=== PATIENT | male | born 1995 | race Caucasian/White ===

== ENCOUNTER → 2024-02-07 | Outpatient (CLI) | payer OTHER ==
[~2024-02-07] MED LIST: GASTROGRAFIN SOLUTION 30ML ONE; ISOVUE-370 76% 100ML VIAL ONE
== END ==
LOC: M PLAIMG 09:06
PROVIDERS: ATTEND Physician Assistant
DX: R10.11 Right upper quadrant pain (principal); R10.31 Right lower quadrant pain
CPT/HCPCS: 74178; Q9963; Q9967

== ENCOUNTER 2025-02-03 10:44 | Inpatient (IN) | payer OTHER ==
[~2025-02-03] VITALS: Ht 165.1 cm; Wt 95.5 kg
[2025-02-03 11:27] LABS: HEMATOCRIT 48.9 % (42.0-52.0); HEMOGLOBIN 16.7 g/dl (13.5-17.5); MEAN CORPUSCULAR HEMOGLOBIN 30.9 pg (27.0-33.0); MEAN CORPUSCULAR HGB CONC 34.2 g/dl (32.0-36.5); MEAN CORPUSCULAR VOLUME 90.4 fl (80.0-96.0); PLATELET COUNT, AUTOMATED 208 10^3/uL (150-450); RED BLOOD COUNT 5.41 10^6/uL (4.30-6.10); WHITE BLOOD COUNT 6.4 10^3/uL (4.0-10.0)
[2025-02-03 11:49] LABS: ETHYL ALCOHOL (ETHANOL) < 0.003 % (0.000-0.010)
[2025-02-03 11:51] LABS: ALBUMIN 4.1 G/DL (3.2-5.2); ALKALINE PHOSPHATASE 138 U/L (40-129); ALT/SGPT 50 U/L (7.0-40); AST/SGOT 23 U/L (<34); BILIRUBIN,DIRECT 0.2 MG/DL (<0.4); BILIRUBIN,TOTAL 0.4 MG/DL (0.3-1.2); BLOOD UREA NITROGEN 14 MG/DL (9-23); CALCIUM LEVEL 9.3 MG/DL (8.5-10.1); CARBON DIOXIDE LEVEL 27 MMOL/L (20-31); CHLORIDE LEVEL 108 MMOL/L (98-107); CREATININE FOR GFR 1.08 MG/DL (0.70-1.30); GLOMERULAR FILTRATION RATE > 90.0 (>60); GLUCOSE, FASTING 112 MG/DL (60-100); POTASSIUM SERUM 4.3 MMOL/L (3.5-5.1); SALICYLATE LEVEL < 3.0 MG/DL (<30); SODIUM LEVEL 144 MMOL/L (136-145); TOTAL PROTEIN 7.4 G/DL (5.7-8.2)
[2025-02-03 11:56] LABS: THYROID STIMULATING HORMONE 1.466 uIU/ML (0.55-4.78)
[2025-02-03 14:26] LABS: AMPHETAMINES LEVEL URINE NEGATIVE (NEGATIVE); BARBITURATES URINE NEGATIVE (NEGATIVE); COCAINE METABOLITE URINE NEGATIVE (NEGATIVE)
[2025-02-03 14:27] LABS: BENZODIAZEPINES URINE NEGATIVE (NEGATIVE); CANNABINOIDS URINE NEGATIVE (NEGATIVE); METHADONE URINE NEGATIVE (NEGATIVE); OPIATES URINE NEGATIVE (NEGATIVE); PHENCYCLIDINE URINE NEGATIVE (NEGATIVE)
[2025-02-03] MEDS ORDERED: THERTAB52 PO (15:03)
[2025-02-03] MEDS ORDERED: ACET-897 PO (15:03)
[2025-02-03] MEDS ORDERED: HOME MED LIST COMPLETE! XX SCH (15:05)
[2025-02-03 18:00] VITALS: BP 122/70; TEMP 98.1; O2SAT 97
[2025-02-03] MEDS ORDERED: diphenhydrAMINE 25MG CAP PO PRN (20:15)
[2025-02-03] MEDS ORDERED: IBUPROFEN 400MG TAB PO PRN (20:15)
[2025-02-03] MEDS ORDERED: MOM 30ML SUSPENSION UDC PO PRN (20:15)
[2025-02-03] MEDS ORDERED: MAALOX 30 ML SUSP *UDC PO PRN (20:15)
[2025-02-03] MEDS ORDERED: ACETAMINOPHEN 325 MG TAB PO PRN (20:15)
[2025-02-03] MEDS: traZODone 50 MG TAB PO PRN (20:32)
[2025-02-04 06:31] VITALS: BP 107/58; TEMP 97.3; O2SAT 96
[2025-02-04] MEDS: SERTRALINE HCL 50 MG TAB PO SCH (15:00)
[2025-02-04 16:03] VITALS: BP 120/81; TEMP 97.9; O2SAT 97
[2025-02-05 06:36] VITALS: BP 125/58; TEMP 98.5; O2SAT 96
[2025-02-05 15:38] VITALS: BP 128/84; TEMP 97.9; O2SAT 100
[2025-02-06 06:49] VITALS: BP 120/78; TEMP 97.8; O2SAT 97
[2025-02-06 16:00] VITALS: BP 118/78; TEMP 97.4; O2SAT 96
[2025-02-06] MEDS: SERTRALINE HCL 25 MG TABLET PO SCH (20:47)
[2025-02-07 06:32] VITALS: BP 142/65; TEMP 98; O2SAT 98
[2025-02-07] MEDS ORDERED: SERT25TA21 PO (08:44)
== END 2025-02-07 12:22 | disposition home or self-care (01) | DRG 885 ==
LOC: M ED 10:44 → M ED INP 14:46 → M PSY 17:58
PROVIDERS: ADMIT Psychiatry & Neurology Psychiatry; ATTEND Psychiatry & Neurology Psychiatry
DX: F33.2 Major depressive disorder, recurrent severe without psychotic features (principal); F41.9 Anxiety disorder, unspecified; F43.10 Post-traumatic stress disorder, unspecified; G89.29 Other chronic pain; M25.552 Pain in left hip; F17.290 Nicotine dependence, other tobacco product, uncomplicated; Z91.52 Personal history of nonsuicidal self-harm; Z81.8 Family history of other mental and behavioral disorders